=== PATIENT | female | born 1955 | race African-American/Black ===

== ENCOUNTER 2023-01-02 10:03 | Inpatient (IN) | payer MEDICARE, OTHER ==
[2023-01-02] MEDS ORDERED: hydrALAZINE 20 MG/ML VIAL SLOW IVP SCH ×2 (10:30→16:38)
[2023-01-02] MEDS ORDERED: Acetaminophen 500 MG TAB PO SCH (10:30)
[2023-01-02 10:37] LABS: #Eosinphils 0.1 thou/uL (0.0-0.7); #Monocytes 0.8 thou/uL (0.11-0.59); #Neutrophils 3.7 thou/uL (1.40-6.50); %Basophils 0.3 % (0.0-1.0); %Eosinophils 0.9 % (0.0-10.0); %Lymphocytes 21.7 % (21.0-51.0); %Monocytes 13.3 % (0.0-10.0); %Neutrophils 63.6 % (42.0-75.0); Hemoglobin 9.1 g/dL (12.0-16.0); Mean Corpuscular HGB CONC 31.6 g/dL (32.0-36.0); Mean Corpuscular Hemoglobin 25.9 pg (27.0-31.0); Mean Corpuscular Volume 81.8 fl (78.0-98.0); Mean Platelet Volume 11.1 fL (7.4-10.4); Platelet Count 211 10x3/uL (130-400); RBC Distribution Width 16.4 % (11.5-14.5); Red Blood Cell (RBC) Count 3.52 mill/uL (4.20-5.40); White Blood Cell (WBC) Count 5.8 10x3/uL (4.8-10.8)
[2023-01-02] MEDS ORDERED: hydrALAZINE 20 MG/ML VIAL ONE ×2 (10:38→12:51)
[2023-01-02] MEDS ORDERED: Acetaminophen 500 MG TAB ONE ×3 (10:42→10:44)
[2023-01-02 11:18] LABS: Anion Gap 16 mmol/L (10-20); BUN (Urea Nitrogen) 54 mg/dL (9.8-20.1); Calc. Creatinine Clearance 0 mL/min (70-130); Carbon Dioxide 17 mmol/L (23-31); Chloride 108 mmol/L (98-107); Estimated GFR 15; Potassium 3.6 mmol/L (3.5-5.1); Sodium 137 mmol/L (136-145)
[2023-01-02 11:19] LABS: ALT (SGPT) 12 U/L (8-55); AST (SGOT) 15 U/L (5-34); Albumin 3.7 g/dL (3.4-4.8); Alkaline Phosphatase 48 U/L (40-110); Bilirubin, Total 0.3 mg/dL (0.2-1.2); Calcium 8.6 mg/dL (7.6-10.4); Globulin 3.1 g/dL (2.4-3.5); Glucose 91 mg/dL (80-115); Protein, Total 6.8 g/dL (5.8-8.1)
[2023-01-02] MEDS ORDERED: Acetaminophen 325 MG TAB PO PRN (12:57)
[2023-01-02 13:57] LABS: Hemoglobin A1c 5.5 % (4.0-6.0)
[2023-01-02] MEDS ORDERED: hydrALAZINE 20 MG/ML VIAL SLOW IVP PRN (14:49)
[2023-01-02] MEDS ORDERED: Furosemide 40 MG/4 ML VIAL SLOW IVP SCH (15:00)
[2023-01-02] MEDS ORDERED: Amlodipine 10 MG TAB PO SCH (15:00)
[2023-01-02] MEDS: Heparin 5,000 UNITS/ML VIAL SC SCH ×2 (15:32→20:32)
[2023-01-02 15:45] VITALS: BMI 25.4
[2023-01-02 16:15] LABS: Phosphorus 3.6 mg/dL (2.3-4.7)
[2023-01-02 16:22] LABS: Troponin I 0.039 ng/mL (< 0.028)
[2023-01-02 17:05] LABS: SARS-CoV-2 NAA Rapid Test Not Detected (NotDetected)
[2023-01-02] MEDS ORDERED: Labetalol HCl 100 MG/20 ML VIAL SLOW IVP SCH (17:30)
[2023-01-02] MEDS ORDERED: Labetalol HCl 100 MG/20 ML VIAL SLOW IVP PRN (17:30)
[2023-01-02 20:05] LABS: Troponin I 0.042 ng/mL (< 0.028)
[2023-01-02] MEDS ORDERED: guaiFENesin ER 600 MG TAB PO SCH (21:00)
[2023-01-02] MEDS ORDERED: Melatonin 3 MG TAB PO PRN (22:27)
[2023-01-03 05:37] LABS: #Monocytes 0.6 thou/uL (0.11-0.59); #Neutrophils 3.9 thou/uL (1.40-6.50); %Basophils 0.4 % (0.0-1.0); %Lymphocytes 17.9 % (21.0-51.0); %Monocytes 10.9 % (0.0-10.0); %Neutrophils 70.4 % (42.0-75.0); Hemoglobin 9.2 g/dL (12.0-16.0); Mean Corpuscular HGB CONC 31.2 g/dL (32.0-36.0); Mean Corpuscular Hemoglobin 25.3 pg (27.0-31.0); Mean Platelet Volume 11.9 fL (7.4-10.4); Platelet Count 210 10x3/uL (130-400); RBC Distribution Width 16.5 % (11.5-14.5); Red Blood Cell (RBC) Count 3.64 mill/uL (4.20-5.40); White Blood Cell (WBC) Count 5.6 10x3/uL (4.8-10.8)
[2023-01-03 05:58] LABS: Anion Gap 17 mmol/L (10-20); BUN (Urea Nitrogen) 55 mg/dL (9.8-20.1); Calc. Creatinine Clearance 19 mL/min (70-130); Calcium 8.5 mg/dL (7.8-10.44); Carbon Dioxide 16 mmol/L (23-31); Cardiac Risk 5.2 (Less than 4.5); Chloride 107 mmol/L (98-107); Cholesterol 191 mg/dl (< 200 Desired); Estimated GFR 14; Glucose 103 mg/dL (80-115); HDL Cholesterol 37 mg/dL (>60 Neg Risk); LDL Cholesterol, Calculated 139 mg/dL; Potassium 3.4 mmol/L (3.5-5.1); Sodium 137 mmol/L (136-145); Triglycerides 74 mg/dL (Less than 150)
[2023-01-03] MEDS ORDERED: hydrALAZINE 10 MG TAB PO SCH (06:00)
[2023-01-03] MEDS ORDERED: guaiFENesin ER 600 MG TAB PO PRN (08:24)
[2023-01-03] MEDS: Carvedilol 6.25 MG TAB PO SCH ×2 (09:00→17:54)
[2023-01-03] MEDS ORDERED: Amlodipine 10 MG TAB PO SCH (09:00)
[2023-01-03] MEDS: Heparin 5,000 UNITS/ML VIAL SC SCH ×3 (10:33→20:53)
[2023-01-03] MEDS: NIFEdipine XL 90 MG TAB PO SCH (10:34)
[2023-01-03 10:41] LABS: Troponin I 0.041 ng/mL (< 0.028)
[2023-01-03] MEDS: hydrALAZINE 20 MG/ML VIAL SLOW IVP PRN ×2 (10:51→18:02)
[2023-01-03] MEDS ORDERED: Carvedilol 6.25 MG TAB PO SCH (12:00)
[2023-01-03] MEDS: hydrALAZINE 10 MG TAB PO SCH ×2 (15:46→20:53)
[2023-01-03] MEDS: Melatonin 3 MG TAB PO PRN (20:53)
[2023-01-03] MEDS: Sodium Bicarbonate Tab 325 MG TAB PO SCH (20:53)
[2023-01-04 04:29] LABS: #Eosinphils 0.1 thou/uL (0.0-0.7); #Monocytes 0.6 thou/uL (0.11-0.59); #Neutrophils 2.3 thou/uL (1.40-6.50); %Basophils 0.5 % (0.0-1.0); %Eosinophils 1.2 % (0.0-10.0); %Lymphocytes 29.6 % (21.0-51.0); %Monocytes 14.4 % (0.0-10.0); %Neutrophils 54.1 % (42.0-75.0); Mean Corpuscular Hemoglobin 25.9 pg (27.0-31.0); Mean Corpuscular Volume 83.3 fl (78.0-98.0); Mean Platelet Volume 11.6 fL (7.4-10.4); Platelet Count 202 10x3/uL (130-400); RBC Distribution Width 16.4 % (11.5-14.5); Red Blood Cell (RBC) Count 3.48 mill/uL (4.20-5.40); White Blood Cell (WBC) Count 4.2 10x3/uL (4.8-10.8)
[2023-01-04 05:16] LABS: Anion Gap 16 mmol/L (10-20); BUN (Urea Nitrogen) 59 mg/dL (9.8-20.1); Calc. Creatinine Clearance 16 mL/min (70-130); Carbon Dioxide 18 mmol/L (23-31); Chloride 107 mmol/L (98-107); Potassium 3.4 mmol/L (3.5-5.1); Sodium 138 mmol/L (136-145)
[2023-01-04 05:17] LABS: Calcium 8.5 mg/dL (7.8-10.44); Estimated GFR 13; Glucose 85 mg/dL (80-115)
[2023-01-04] MEDS ORDERED: Losartan 25 MG TAB PO SCH (09:00)
[2023-01-04 09:16] LABS: Body Surface Area 1.81
[2023-01-04] MEDS: Sodium Bicarbonate Tab 325 MG TAB PO SCH ×3 (09:25→20:27)
[2023-01-04] MEDS: Carvedilol 6.25 MG TAB PO SCH ×2 (09:25→17:44)
[2023-01-04] MEDS: hydrALAZINE 10 MG TAB PO SCH ×3 (09:26→20:26)
[2023-01-04] MEDS: Heparin 5,000 UNITS/ML VIAL SC SCH ×3 (09:26→20:27)
[2023-01-04] MEDS ORDERED: hydrALAZINE 10 MG TAB PO SCH ×2 (10:04→10:15)
[2023-01-04] MEDS: NIFEdipine XL 90 MG TAB PO SCH (10:38)
[2023-01-04] MEDS: Lactated Ringer's 500 ML IV SCH (15:41)
[2023-01-04] MEDS: Potassium Chloride 20 MEQ TAB PO SCH ×2 (20:27→23:33)
[2023-01-04] MEDS: Melatonin 3 MG TAB PO PRN (20:27)
[2023-01-04] MEDS ORDERED: Atorvastatin Calcium 40 MG TAB PO SCH (21:00)
[2023-01-04] MEDS ORDERED: Atorvastatin Calcium 20 MG TAB PO SCH (21:00)
[2023-01-05 04:14] LABS: Creatinine, Urine 177.02 mg/dL (47-110)
[2023-01-05 04:25] LABS: #Eosinphils 0.1 thou/uL (0.0-0.7); #Monocytes 0.6 thou/uL (0.11-0.59); #Neutrophils 1.9 thou/uL (1.40-6.50); %Basophils 0.5 % (0.0-1.0); %Eosinophils 1.8 % (0.0-10.0); %Lymphocytes 32.5 % (21.0-51.0); %Neutrophils 49.2 % (42.0-75.0); Hemoglobin 8.9 g/dL (12.0-16.0); Mean Corpuscular HGB CONC 31.7 g/dL (32.0-36.0); Mean Corpuscular Hemoglobin 25.4 pg (27.0-31.0); Mean Platelet Volume 10.8 fL (7.4-10.4); Platelet Count 225 10x3/uL (130-400); RBC Distribution Width 16.3 % (11.5-14.5); Red Blood Cell (RBC) Count 3.51 mill/uL (4.20-5.40); White Blood Cell (WBC) Count 3.8 10x3/uL (4.8-10.8)
[2023-01-05] MEDS: Lactated Ringer's 500 ML IV SCH (04:28)
[2023-01-05 04:37] LABS: Mean Corpuscular Volume 80.1 fl (78.0-98.0)
[2023-01-05 04:53] LABS: Albumin 3.4 g/dL (3.4-4.8); Anion Gap 13 mmol/L (10-20); BUN (Urea Nitrogen) 65 mg/dL (9.8-20.1); BUN/Creatinine Ratio 15.29; Calc. Creatinine Clearance 15 mL/min (70-130); Calcium 8.6 mg/dL (7.8-10.44); Carbon Dioxide 21 mmol/L (23-31); Chloride 109 mmol/L (98-107); Estimated GFR 11; Glucose 94 mg/dL (80-115); Iron 21 ug/dL (50-170); Iron 23 ug/dL (50-170); Iron Binding Capacity, Total 211 mcg/dL (265-497); Iron Binding Capacity, Total 224 mcg/dL (265-497); Phosphorus 4.1 mg/dL (2.3-4.7); Potassium 4.3 mmol/L (3.5-5.1); Sodium 139 mmol/L (136-145)
[2023-01-05 05:17] LABS: Ferritin 198.12 ng/mL (10-291)
[2023-01-05 09:17] VITALS: BP 168/74; TEMP 98.4
[2023-01-05] MEDS: Carvedilol 6.25 MG TAB PO SCH (09:28)
[2023-01-05] MEDS: Heparin 5,000 UNITS/ML VIAL SC SCH (09:29)
[2023-01-05] MEDS: NIFEdipine XL 90 MG TAB PO SCH (09:31)
[2023-01-05] MEDS: hydrALAZINE 10 MG TAB PO SCH (09:31)
[2023-01-05] MEDS: Sodium Bicarbonate Tab 325 MG TAB PO SCH (09:34)
[2023-01-10] MEDS ORDERED: Ergocalciferol 1.25 MG(50,000 UNITS) CAP PO SCH (09:00)
== END 2023-01-05 12:34 | disposition home or self-care (01) | DRG 304 ==
LOC: ERS 10:03 → 2NO 12:45
PROVIDERS: ADMIT Emergency Medicine; ATTEND Emergency Medicine
DX: I16.1 Hypertensive emergency (principal); I50.31 Acute diastolic (congestive) heart failure; N17.9 Acute kidney failure, unspecified; N18.5 Chronic kidney disease, stage 5; I13.2 Hypertensive heart and chronic kidney disease with heart failure and with stage 5 chronic kidney disease, or end stage renal disease; D63.1 Anemia in chronic kidney disease; E87.6 Hypokalemia; E55.9 Vitamin D deficiency, unspecified; Z20.822 Contact with and (suspected) exposure to COVID-19; Z79.2 Long term (current) use of antibiotics; Z79.899 Other long term (current) drug therapy; Z98.890 Other specified postprocedural states; Z98.891 History of uterine scar from previous surgery; Z84.2 Family history of other diseases of the genitourinary system
CPT/HCPCS: 36415; 70450; 71045; 74176; 76770; 80048; 80053; 80061; 80069; 82306; 82570; 82575; 82607; 82728; 83036; 83540; 83550; 83880; 83970; 84100; 84156; 84443; 84484; 85025; 85046; 93005; 93306; 96365; 96366; J0360; J1644; J1940; J7120